=== PATIENT | female | born 1970 | race Two or more races ===

== ENCOUNTER 2016-11-14 03:50 | Emergency (ER) | payer MEDICAID ==
[~2016-11-14] VITALS: Ht 165.1 cm; Wt 113.4 kg
[~2016-11-14 03:50] MED LIST: LEVO100T PO
[2016-11-14 04:11] VITALS: BP 151/104
== END 2016-11-14 04:44 | disposition home or self-care (01) ==
LOC: ER 03:52
DX: N93.9 Abnormal uterine and vaginal bleeding, unspecified (principal); E03.9 Hypothyroidism, unspecified; Z88.5 Allergy status to narcotic agent
CPT/HCPCS: 99283; A4606; Z7610

== ENCOUNTER 2017-10-24 19:35 | Emergency (ER) | payer MEDICAID, OTHER ==
[~2017-10-24] VITALS: Ht 165.1 cm; Wt 113.4 kg
[2017-10-24 20:09] VITALS: BP 103/69
--- NOTE | 2017-10-24 20:37 | NUR ---
PT TAKEN TO ROOM #20. PT AMBULATED WITH A STEADY GAIT. VSS.
== END 2017-10-24 20:59 | disposition home or self-care (01) ==
LOC: ER 19:40
DX: R05 Cough (principal); R09.81 Nasal congestion; E03.9 Hypothyroidism, unspecified; F11.10 Opioid abuse, uncomplicated
CPT/HCPCS: 71045; 99283; A4606; Z7610

== ENCOUNTER 2018-09-26 06:36 | Emergency (ER) | payer OTHER, MEDICAID ==
[~2018-09-26] VITALS: Ht 165.1 cm; Wt 106.6 kg
[2018-09-26] MEDS ORDERED: MAG HYDROX/AL HYDROX/SIMETH 30 ML UDC PO ONE (07:00)
[2018-09-26] MEDS ORDERED: LIDOCAINE 2% JEL UROJET 10 ML MM ONE (07:00)
[2018-09-26] MEDS ORDERED: ONDANSETRON 4 MG TAB.RAPDIS SL ONE (07:00)
[2018-09-26] MEDS ORDERED: MAG HYDROX/AL HYDROX/SIMETH 30 ML UDC ONE (07:12)
[2018-09-26] MEDS ORDERED: LIDOCAINE VISCOUS 2% UD 15 ML UDC ONE (07:12)
[2018-09-26] MEDS ORDERED: ONDANSETRON 4 MG TAB.RAPDIS ONE (07:13)
--- NOTE | 2018-09-26 07:23 | NUR ---
pt refused zofran, states she doesn't feel nauseous. pt, unable to finish maalox w/ lidocaine stating "My throat is tightening. It feels like it's getting worse. I can't swallow now." pt speaking in full sentences, w/ resp even & unlabored, appears more anxious. Dr. Choi updated on pt status.
[2018-09-26] MEDS ORDERED: LIDOCAINE VISCOUS 2% UD 15 ML UDC MM ONE (07:30)
[2018-09-26 07:39] VITALS: BP 158/98
--- NOTE | 2018-09-26 07:40 | NUR ---
PT GIVEN ALL MEDICATIONS ORDERED DISCHARGED TO HOME GIVEN ACI AND PRESCRIPTION WILL FOLLOW UP WITH PMD.
== END 2018-09-26 07:40 | disposition home or self-care (01) ==
LOC: ER 06:41
DX: F41.9 Anxiety disorder, unspecified (principal); K30 Functional dyspepsia; G47.00 Insomnia, unspecified; B96.81 Helicobacter pylori [H. pylori] as the cause of diseases classified elsewhere; E03.9 Hypothyroidism, unspecified; Z88.5 Allergy status to narcotic agent; Z60.2 Problems related to living alone
CPT/HCPCS: Q0162

== ENCOUNTER 2019-03-09 08:28 | Emergency (ER) | payer MEDICAID, OTHER ==
[~2019-03-09] VITALS: Ht 167.6 cm; Wt 86.2 kg
[2019-03-09 08:45] VITALS: BP 145/98
== END 2019-03-09 09:18 | disposition home or self-care (01) ==
LOC: ER 08:35
DX: J20.9 Acute bronchitis, unspecified (principal); E03.9 Hypothyroidism, unspecified; Z88.5 Allergy status to narcotic agent; Z60.2 Problems related to living alone; Z79.899 Other long term (current) drug therapy

== ENCOUNTER 2024-06-07 20:34 | Emergency (ER) | payer MEDICAID, OTHER ==
[~2024-06-07] VITALS: Ht 165.1 cm; Wt 108.9 kg
[2024-06-07] MEDS ORDERED: IBUPROFEN 400 MG TABLET ONE (23:34)
[2024-06-07] MEDS: IBUPROFEN 400 MG TABLET PO ONE (23:40)
[2024-06-08 00:31] VITALS: BP 135/70; TEMP 98.4; O2SAT 99
== END 2024-06-08 00:31 | disposition home or self-care (01) ==
LOC: ER 20:35
DX: S76.812A Strain of other specified muscles, fascia and tendons at thigh level, left thigh, initial encounter (principal); E03.9 Hypothyroidism, unspecified; Z98.890 Other specified postprocedural states; Z79.899 Other long term (current) drug therapy; Z60.2 Problems related to living alone; Z88.5 Allergy status to narcotic agent; X58.XXXA Exposure to other specified factors, initial encounter; Y93.89 Activity, other specified; Y92.512 Supermarket, store or market as the place of occurrence of the external cause; Y99.8 Other external cause status
CPT/HCPCS: 93971-TC